=== PATIENT | female | born 1995 | race Caucasian/White ===

== ENCOUNTER 2017-11-10 09:50 | Inpatient (IN) | payer OTHER, SELFPAY ==
[2016-11-20 21:20] VITALS: BMI 28.7
[2016-11-20 21:59] VITALS: BP 124/60
[2017-11-10 04:19] VITALS: BMI 32.3
[2017-11-10] MEDS: Nalbuphine 10 MG/ML Ampul IV ×2 (06:47→10:39)
[2017-11-10] MEDS: Lactated Ringers 1,000 ML 999 ML IV (06:49)
[2017-11-10 07:13] LABS: Hematocrit 38.2 % (37-47); Hemoglobin 13.3 g/dl (12.0-15.0); Mean Corp Hgb Conc 34.8 g/gl (32-36); Mean Corpuscular Hgb 34.7 pg (27.0-32.0); Mean Corpuscular Volume 99.7 fL (81-99); Mean Platelet Vol. 10.1 fl (6.2-12.0); Platelet Count 205 K/mm3 (150-450); RBC Distribution Width CV 12.5 % (11.6-14.6); RBC Distribution Width SD 45.1 fl (35.1-43.9); Red Blood Count 3.83 M/mm3 (4.2-5.4); White Blood Count 10.7 K/mm3 (4.4-11.0)
[2017-11-10 07:15] LABS: Scan Indicated on CBC? Y/N NO
[2017-11-10] MEDS: 0.9% Saline Lock 10 ML Syringe IV (10:41)
[2017-11-10] MEDS: Lactated Ringers 1,000 ML 50 ML IV ×4 (10:42→23:29)
[2017-11-10] MEDS: Oxytocin 30 units/NS 500 ml 30 UNITS/500 ML IV.SOLN IV (13:30)
[2017-11-10] MEDS: Ondansetron 4 MG/2 ML Vial IV (17:05)
--- NOTE | 2017-11-10 18:46 | PCM.PN.BLA ---
Progress Note LABOR PROGRESS NOTE Comfortable with epidural. Reports itching on neck and chest. AVSS GEN -NAD, AAO x 3 FHR 135, moderate variability, + accelerations, no decelerations TOCO 4/10 min, MVU > 200 SVE per RN 8/100/0 approx 1 hour ago A/P 22yo @ 40 4/7wga in active labor, pitocin augmentation, Cat I FHR -Continue pitocin as tolerated by mother and fetus -Repeat SVE in 1-2 hours -Maternal and statuses reassuring
--- NOTE | 2017-11-10 23:19 | PCM.PN.BLA ---
Progress Note LABOR PROGRESS NOTE C/o painful contractions AVSS GEN - NAD, AAO x 3 FHR 150, minimal variability, + accelerations, no decelerations TOCO 4/10 min SVE FD/+1 per RN exam A/P: 22yo @ 40 3/7wga in labor, Cat II FHR -Maternal and statuses overall reassuring -Epidural rebolused -Will start puching
[2017-11-11] VITALS (23 sets, daily range): BP systolic 107–135; BP diastolic 56–86; PULSE 88–114; RESP 16–18; TEMP 36.1–37.5; O2SAT 92–100
[2017-11-11] MEDS: Lactated Ringers 1,000 ML 50 ML IV (01:40)
--- NOTE | 2017-11-11 03:41 | PCM.PN.BLA ---
Progress Note LABOR PROGRESS NOTE Relates fatigue from pushing. AVSS GEN - NAD, AAO x 3 FHR 140, moderate variability, +accelerations, no decelerations TOCO 2/10 min SVE FD/+1 station with caput A/P: 22yo @ 40 4/7wga in labor, meconium with arrest of descent -I Pushed with patient x 30 min with no change in station and worsening caput during this time - she had already pushed for approximately 3 hours, plus labored down for 3 hours (partly while awaiting epidural redosing to work) -Reviewed with patient and spouse - arrest of descent and recommend delivery. Procedural risks including pain, bleeding, infection, hemorrhage possibly requiring hysterectomy, bowel or bladder injury, VTE, scarring to potentially impact future surgery, laceration, transient tachypnea of the . Discussed perioperative antibiotics and vaginal prep. -Patient and spouse given opportunity to ask questions and questions answered to their satisfaction.
[2017-11-11] MEDS: Sodium Citrate/Citric Acid 30 ML UDC PO (03:50)
[2017-11-11] MEDS: Cefazolin 2 GM in 0.9% Normal Saline 100 ML IV (03:50)
[2017-11-11] MEDS: Oxytocin 30 units/NS 500 ml 30 UNITS/500 ML IV.SOLN 167 UNITS IV (04:21)
[2017-11-11] MEDS: Lactated Ringers 1,000 ML 100 ML IV ×2 (05:30→11:51)
--- NOTE | 2017-11-11 05:36 | PCM.OB.CSR ---
- Problem List (1) 40 weeks gestation of Status: Acute (2) Arrest of descent, delivered, current hospitalization Status: Acute (3) Delivery of by section Status: Acute Delivery Classification: DESTINEY Final ESTER: 11/07/17 Final ESTER Source: [place] <20 weeks Gestational age: 40 Weeks and 4 Days doctor who attended delivery (if requested by OB): Valerie Gutiérrez Indications: Ms. Nowak is a 22-year-old 3 para 0020 at 40-4/7 weeks gestational age admitted for labor. She had progressed to fully dilated and pushed for approximately 3 hours with no descent beyond 1+ station. She is counseled advised to proceed with section. risks were reviewed at length. Also discussed benefits and indications of section. Patient was given opportunity to ask questions and questions were answered to her satisfaction. Indications for : Arrrest of Descent Description of Procedure: The patient was taken to the operating room and spinal analgesia was administered. She is placed in a dorsal supine position with left lateral tilt. The perineum and abdomen were prepped and draped in sterile fashion. And the spinal was found to be adequate. A Pfannenstiel incision was made using a scalpel and brought down to incise the subcutaneous tissue and rectus fascia at the midline. Subcutaneous tissue was bluntly dissected off the fascia laterally. The fascial incision was dissected laterally and cephalad using curved Sebastian scissors. The superior leaflet of the rectus fascia was grasped using Ari clamps and bluntly dissected and sharply dissected from the underlying rectus muscle. In a similar fashion the inferior rectus fascia was dissected from the underlying muscle. The rectus muscles were bluntly at the midline. The peritoneum was identified and entered [sharply]. The bladder blade was placed into the abdomen and the vesicouterine peritoneal fold identified. The fold was incised and a bladder flap created. Bladder blade was then repositioned to the abdomen. A low transverse hysterotomy was made using the [Metzenbaum scissors] to level of the membranes. The hysterotomy was extended bluntly cephalad and caudad. The membranes were then ruptured revealing clear fluid. The head was impacted in the pelvis. This was required with head elevation transvaginally. The head was elevated into the uterus, where there was maternal tissue dystocia. The left rectus muscle was partially transected using the bandage scissor. The head was subsequently delivered via the hysterotomy. A male was delivered with decreased tone. The cord was doubly cut clamped and cut immediately and the infant passed to the waiting force adjustment supervisor. The placenta was manually extracted from the uterus following cord avulsion on expression. The uterus was cleared of debris. The hysterotomy was then repaired using 0 Vicryl running lock suture intracorporeally. During hysterotomy repair the patient complained of significant pain and due to inadequate pain relief she is ultimately induced under general anesthesia and intubated. A second imbricating layer was also placed for additional hemostasis. Additional bleeding from the left uterus was controlled using Molly and figure of 8 suture. There was good hemostasis. The bladder blade was removed. The anterior cul-de-sac was cleared of debris. The peritoneum was reapproximated using 2-0 Vicryl running suture. The transected rectus abdominis on the left was reapproximated using 0 Vicryl. The rectus fascia was closed using 0 Vicryl running suture. The subcutaneous tissue was sponge irrigated and small capillary bleeding controlled using the Bovie device. The subcutaneous tissue was reapproximated using 2-0 Vicryl. The skin was closed using 4-0 Monocryl subcuticularly the AIRCRAFT PAINTER under my supervision.. A Mepilex occlusive dressing was placed over the incision. The fundus was firm. The patient was then taken, extubated, and transferred to the recovery room without complication. Sponge, instrument, and needle counts were correct ?2. Male infant with weight 3267h Amniotic Membrane Rupture Type: Spontaneous Amniotic Fluid Description: Thick meconium Placenta Disposition: [facility] Drain: Cortes to straight drain Fluids Replaced: 1200 Cord Entanglement: None Nuchal Cord Compression: Without compression Cord Vessel Description: 3 Vessels Esitmated Blood Loss (ml): 1000 Gender: Male (1 minute): 1 (5 minute): 6 - 9 at 10 minutes of life Delayed cord clamping: No Pre-op Antibiotic Given: Ancef 2 grams IV x1 Pt instructed on risks of surgery: Bleeding, Infection, Injury to surrounding structure(s) including bowel and bladder - Admit VTE Documentation VTE Present on Admission: No VTE Mechan Device Prophylaxis: SCD's VTE Pharm Prophylaxis ordered?: No
--- NOTE | 2017-11-11 05:47 | PCM.IMED.CSR ---
- Problem List (1) 40 weeks gestation of Status: Acute (2) Arrest of descent, delivered, current hospitalization Status: Acute (3) Delivery of by section Status: Acute C-[id number]-[id number] PostOp Date of Procedure: 11/11/17 Primary Surgeon/Physician: Mariela Arreola, spinning lathe operator hydraulic: Yasmine Vo spinning lathe operator hydraulic: Fanny Fields Pre-op Diagnosis: Arrrest of Descent Post-Op Diagnosis: Arrrest of Descent Surgery/Procedure Performed: Primary low transverse Section Description of Surgical Findings:: The patient was taken to the operating room and spinal analgesia was administered. She is placed in a dorsal supine position with left lateral tilt. The perineum and abdomen were prepped and draped in sterile fashion. And the spinal was found to be adequate. A Pfannenstiel incision was made using a scalpel and brought down to incise the subcutaneous tissue and rectus fascia at the midline. Subcutaneous tissue was bluntly dissected off the fascia laterally. The fascial incision was dissected laterally and cephalad using curved Sebastian scissors. The superior leaflet of the rectus fascia was grasped using Ari clamps and bluntly dissected and sharply dissected from the underlying rectus muscle. In a similar fashion the inferior rectus fascia was dissected from the underlying muscle. The rectus muscles were bluntly at the midline. The peritoneum was identified and entered [sharply]. The bladder blade was placed into the abdomen and the vesicouterine peritoneal fold identified. The fold was incised and a bladder flap created. Bladder blade was then repositioned to the abdomen. A low transverse hysterotomy was made using the [Metzenbaum scissors] to level of the membranes. The hysterotomy was extended bluntly cephalad and caudad. The membranes were then ruptured revealing clear fluid. The head was impacted in the pelvis. This was required with head elevation transvaginally. The head was elevated into the uterus, where there was maternal tissue dystocia. The left rectus muscle was partially transected using the bandage scissor. The head was subsequently delivered via the hysterotomy. A male infant was delivered with decreased tone. The cord was doubly cut clamped and cut immediately and the infant passed to the waiting independent beauty consultant. The placenta was manually extracted from the uterus following cord avulsion on expression. The uterus was cleared of debris. The hysterotomy was then repaired using 0 Vicryl running lock suture intracorporeally. During hysterotomy repair the patient complained of significant pain and due to inadequate pain relief she is ultimately induced under general anesthesia and intubated. A second imbricating layer was also placed for additional hemostasis. Additional bleeding from the left uterus was controlled using Molly and figure of 8 suture. There was good hemostasis. The bladder blade was removed. The anterior cul-de-sac was cleared of debris. The peritoneum was reapproximated using 2-0 Vicryl running suture. The transected rectus abdominis on the left was reapproximated using 0 Vicryl. The rectus fascia was closed using 0 Vicryl running suture. The subcutaneous tissue was sponge irrigated and small capillary bleeding controlled using the Bovie device. The subcutaneous tissue was reapproximated using 2-0 Vicryl. The skin was closed using 4-0 Monocryl subcuticularly the AIR SAW OPERATOR under my supervision.. A Mepilex occlusive dressing was placed over the incision. The fundus was firm. The patient was then taken, extubated, and transferred to the recovery room without complication. Sponge, instrument, and needle counts were correct ?2. Male with weight 3267h Estimated Blood Loss: 1000 Specimens Removed: placenta to WP Drain: Cortes to straight drain Type of Anesthesia: - - Epidural converted to general - Admit VTE Documentation VTE Present on Admission: No VTE Mechan Device Prophylaxis: SCD's VTE Pharm Prophylaxis ordered?: No
[2017-11-11] MEDS: HYDROmorphone 1 MG/ML Syringe IV ×2 (05:58→17:28)
--- NOTE | 2017-11-11 07:02 | NURSING ---
Oxygen at 2L/min initiated via nasal cannula.
--- NOTE | 2017-11-11 08:50 | DCINST_ITS ---
Discharge Diet: No Restrictions Discharge Activity: Return to Normal Activity, May Not Drive, May not drive while taking narcotic pain medications., May Shower Return to work on:: 01/09/18 May shower in (days): 0 May resume sexual activity in: 4-6 weeks Call your doctor if your incision/area has: Sudden Increased Bleeding, Increased Pain/ Swelling, Increased Redness, Foul Smelling Discharge, Swelling at the incision site Call your doctor if you observe: Fever of 101 or Higher, Inability to urinate, Inability to have a bowel movement, Using more than one pad per hour, Shortness of breath, Chest pain, Calf discomfort, Uncontrolled pain Remove Dressing in (days):: 2 Cleanse incision/area with: Soap & Water Additional Instructions: If you experience any of the following, contact your healthcare provider. * Bleeding that soaks a pad every hour for 2 hours * Fever 100.4 or higher * Unrelieved incision or abdominal pain * Swelling, redness, discharge or bleeding from your incision or episiotomy site * Your incision begins to separate * Problems urinating (including inability to urinate or burning while urinating) . * Visual changes * Severe headache * Flu-like symptoms * Pain or redness in one of both of your breasts * Pain, warmth, tenderness or swelling in your legs, especially the calf area * Frequent nausea and vomiting * Symptoms of depression or anxiety If you experience any of the following, call 911 or go to the nearest Emergency Room. * Chest pain * Problems breathing * Seizure activity * Partial or complete paralysis of a body part, slurred speech, weakness or drooping of the face, or a sudden inability to walk or hold your balance Allergies/Adverse Reactions: Allergies naproxen sodium [From Aleve] Allergy (Verified 11/10/17 04:20) Rash Medications to take at Discharge Multivitamins,Therapeutic [Multivitamin] 1 tablet PO DAILY 04/11/14 Citalopram [Celexa] 1 tab PO DAILY 11/10/17 Ferrous Gluconate 1 tab PO DAILY 11/10/17 Ibuprofen 800 mg PO TID PRN #30 tab 11/11/17 Oxycodone [Oxyir] 1 - 2 mg PO Q4H PRN PRN 3 Days #30 tab 11/11/17 Senna/Docusate Sodium [Senokot-S] 1 - 2 tab PO DAILY PRN #60 tab 11/11/17 The following prescriptions were given: Oxycodone [Oxyir] 1 - 2 mg PO Q4H PRN PRN 3 Days #30 tab PRN Reason: Mod-Severe Pain (-07/12) Senna/Docusate Sodium [Senokot-S] 1 - 2 tab PO DAILY PRN #60 tab PRN Reason: Constipation Ibuprofen 800 mg PO TID PRN #30 tab PRN Reason: Pain Orders to be completed after discharge: Electric breast pump Location: None Selected Follow-Up: Call to make an appointment with your doctor for an incision check in 1-2 weeks. You will also need a 6 week post- follow up appointment. Please Follow Up With: Ajay Maza MD When: one week Primary Care Physician: Care Physician,No Primary [Primary Care Provider] - Proposed Discharge Date: 11/13/17
[2017-11-11] MEDS: Ibuprofen 600 MG Tablet PO ×2 (08:52→15:18)
--- NOTE | 2017-11-11 09:38 | NURSING ---
Epidural catheter removed with blue tip intact by anesthesia, Jaime SWAN, prior to leaving OR at 525.
[2017-11-11] MEDS: Senna/Docusate Sodium 1 Tablet PO (11:51)
[2017-11-11] MEDS: Citalopram 10 MG Tablet PO (11:51)
--- NOTE | 2017-11-11 13:00 | NURSING ---
Notified Crystal in [employer] social worker of patient's history of depression and of her need for a consultation.
[2017-11-12] VITALS (7 sets, daily range): BP systolic 103–112; BP diastolic 52–79; PULSE 84–120; RESP 16–18; TEMP 36–37.7; O2SAT 95–98
[2017-11-12] MEDS: Ibuprofen 600 MG Tablet PO ×2 (00:47→15:38)
[2017-11-12 05:18] LABS: Hematocrit 27.6 % (37-47); Hemoglobin 9.5 g/dl (12.0-15.0); Mean Corp Hgb Conc 34.4 g/gl (32-36); Mean Corpuscular Hgb 35.3 pg (27.0-32.0); Mean Corpuscular Volume 102.6 fL (81-99); Mean Platelet Vol. 9.6 fl (6.2-12.0); Platelet Count 130 K/mm3 (150-450); RBC Distribution Width CV 12.2 % (11.6-14.6); RBC Distribution Width SD 43.3 fl (35.1-43.9); Red Blood Count 2.69 M/mm3 (4.2-5.4); White Blood Count 12.7 K/mm3 (4.4-11.0)
[2017-11-12 05:27] LABS: Scan Indicated on CBC? Y/N NO
[2017-11-12] MEDS: 0.9% Saline Lock 10 ML Syringe IV (07:04)
[2017-11-12] MEDS: oxyCODONE 5 MG Tablet PO ×3 (10:07→18:35)
[2017-11-12] MEDS: Citalopram 10 MG Tablet PO (10:34)
--- NOTE | 2017-11-12 11:01 | CASEMGMT ---
Social Work Note Face to face with MOB and FOB. Per MOB she has been with FOB, Driss, for 4 years. They are in live together and within 15-20 minutes of relatives. Both report to have adequate supports among family. Driss and CHAVA are both employed FT. CHAVA will be able to take leave from work. They are insured and deny financial concerns. CHAVA lists her cousin and her mother as her primary supports. Both report to have all necessary supplies for infant. Have access to transportation and will establish care at [facility]. Appointment to be made yet, but confirm that they have the phone number. Substance Use Hx: Pt reports a hx of using tobacco in 2013. Denies having used since. No positive tox screen upon admission, and no specimen obtained for . Mental Health Hx and Current pattern of use: Diagnoses: Anxiety and Depression Stressors: Reports overwhelmed this week as she was overdue and was just ready to have our baby. SI or HI? Denies Treatment? Yes When? About a year ago Where[facility] (in [facility] [place] Medications? Celexa Prescribed by: Dr. Maza Pt reports a hx of depression and anxiety. Has been in counseling in the past, but not currently. Feels she does not need a counseling appointment at this time, but knows how to contact her counselor if needed. Dr. Maza prescribes her Celexa and she reports that her mental health is well managed. Coping skills consist of talking to Driss when something is bugging her, doing yoga, or surrounding herself with family. Educate MOB to PP Depression and review s/s with MOB and FOB. Both express understanding. Packet provided to review at home. Resources: Deny use of community resources. Intervention: Assessment completed d/t consult regarding dx of depression. Pt's depression is managed and appropriate supports in place. No additional needs identified and anticipate discharge tomorrow. Plan: Home Shirley Martinez, GLAZE SPRAYER, MACHINE STUFFER AUTOMATIC
--- NOTE | 2017-11-12 12:09 | PCM.PN.OB ---
Patient Problems: Active and Suspected Problems 40 weeks gestation of (Acute) Arrest of descent, delivered, current hospitalization (Acute) Delivery of by section (Acute) Subjective: Patient without complaints except for some nausea this morning. Last dose of Motrin was at 1 AM this morning and she has not been tried on Tylenol. First dose of oxycodone was this morning. Denies flatus or BM. Otherwise doing well ambulating in the room. - Physical Exam Vital Signs AF, VSS Temp Pulse Resp BP Pulse Ox 97.6 F L 89 16 105/79 98 11/12/17 08:00 11/12/17 08:00 11/12/17 08:00 11/12/17 08:00 11/12/17 08:00 Oxygen Flow Rate 2 Oxygen Delivery Method Room Air Weight: 188 lb 11.451 oz Body Mass Index (BMI) 32.3 Intake and Output for Last 24 Hours 11/10/17 11/11/17 11/12/17 23:59 23:59 23:59 Intake Total 4161 / 4161 6953 / 6953 350 / 350 Output Total 1650 / 1650 3850 / 3850 1999 / 1999 Balance 2511 / 2511 3103 / 3103 -1650 / -1650 Laboratory Tests Past 24 Hrs 11/12/17 04:45 WBC 12.7 H RBC 2.69 L Hgb 9.5 L Hct 27.6 L MCV 102.6 H MCH 35.3 H MCHC 34.4 RDW 12.2 RDW Differential 43.3 Plt Count 130 L MPV 9.6 Wound is clean, dry, intact. Good urine output. Hemoglobin okay. Assessment/Plan Active and Suspected Problems 40 weeks gestation of (Acute) Arrest of descent, delivered, current hospitalization (Acute) Delivery of by section (Acute) Doing well postoperative day #1. Continuing present care. We attempt to minimize use of narcotic pain medication if possible as this is the likely cause of the patient's GI symptoms.
[2017-11-13] MEDS: oxyCODONE 5 MG Tablet PO ×3 (00:25→19:50)
[2017-11-13] MEDS: Senna/Docusate Sodium 1 Tablet PO (00:25)
[2017-11-13 01:50] VITALS: BP 110/65; PULSE 113; RESP 17; TEMP 37.2; O2SAT 97
[2017-11-13] MEDS: Ibuprofen 600 MG Tablet PO ×3 (02:31→17:53)
[2017-11-13 09:38] VITALS: BP 101/63; PULSE 94; RESP 16; TEMP 36.7; O2SAT 98
[2017-11-13] MEDS: Citalopram 10 MG Tablet PO (09:50)
--- NOTE | 2017-11-13 11:14 | PCM.PN.OB ---
Patient Problems: Active and Suspected Problems 40 weeks gestation of (Acute) Arrest of descent, delivered, current hospitalization (Acute) Delivery of by section (Acute) Subjective: Patient without complaints. Tolerating diet well. Positive flatus. Ready to go home but baby needs to stay another day. - Physical Exam Vital Signs AF, VSS Temp Pulse Resp BP Pulse Ox 98.1 F 94 16 101/63 98 11/13/17 09:38 11/13/17 09:38 11/13/17 09:38 11/13/17 09:38 11/13/17 09:38 Oxygen Flow Rate 2 Oxygen Delivery Method Room Air Weight: 188 lb 11.451 oz Body Mass Index (BMI) 32.3 Intake and Output for Last 24 Hours 11/11/17 11/12/17 11/13/17 23:59 23:59 23:59 Intake Total 6953 / 6953 350 / 350 Output Total 3850 / 3850 1999 / 1999 Balance 3103 / 3103 -1650 / -1650 Wound is clean, dry. Good urine output. Assessment/Plan Active and Suspected Problems 40 weeks gestation of (Acute) Arrest of descent, delivered, current hospitalization (Acute) Delivery of by section (Acute) Doing well. Continue present care.
[2017-11-13 14:00] VITALS: BP 100/70; PULSE 92; RESP 16; TEMP 36.7
[2017-11-13 19:50] VITALS: BP 104/70; PULSE 104; RESP 17; TEMP 36.4; O2SAT 96
[2017-11-14] MEDS: Ibuprofen 600 MG Tablet PO ×2 (00:53→07:40)
[2017-11-14 02:00] VITALS: BP 109/73; PULSE 105; RESP 18; TEMP 36.8; O2SAT 96
[2017-11-14] MEDS: oxyCODONE 5 MG Tablet PO ×3 (02:14→11:15)
[2017-11-14 07:54] VITALS: BP 93/55; PULSE 93; RESP 16; TEMP 36.4; O2SAT 99
--- NOTE | 2017-11-14 09:18 | PCM.PN.OB ---
Patient Problems: Active and Suspected Problems 40 weeks gestation of (Acute) Arrest of descent, delivered, current hospitalization (Acute) Delivery of by section (Acute) Subjective: Pain reasonably controlled. Voiding. Breast feeding. Objective: Afeb VSS - Physical Exam General: Alert, Oriented x3, Cooperative, No apparent distress Lungs: Clear to auscultation, Normal air movement Cardiovascular: Regular rate, Regular Rhythm Abdomen: Soft, Non Tender, Non-Distended, - - Incision healing well no signs of infection Extremities: No edema, No Calf Tenderness Skin: No rashes Neurological: Neuro grossly intact Psych/Mental Status: Normal Affect Comment: Lochia light Vital Signs Temp Pulse Resp BP Pulse Ox 97.5 F L 93 16 93/55 L 99 11/14/17 07:54 11/14/17 07:54 11/14/17 07:54 11/14/17 07:54 11/14/17 07:54 Oxygen Flow Rate 2 Oxygen Delivery Method Room Air Weight: 188 lb 11.451 oz Body Mass Index (BMI) 32.3 Intake and Output for Last 24 Hours 11/12/17 11/13/17 11/14/17 23:59 23:59 23:59 Intake Total 350 / 350 Output Total 1999 Balance -1650 / -1650 Assessment/Plan Active and Suspected Problems 40 weeks gestation of (Acute) Arrest of descent, delivered, current hospitalization (Acute) Delivery of by section (Acute) Doing well on POD#3. Cleared for discharge home today. Home going instructions and warnings given.
--- NOTE | 2017-11-14 09:20 | PCM.DC.SUM ---
Discharge Date and Diagnosis - Problem List Patient Problems: Active and Suspected Problems 40 weeks gestation of (Acute) Arrest of descent, delivered, current hospitalization (Acute) Delivery of by section (Acute) Date of Admission: 11/10/17 Date of Discharge: 11/14/17 - Primary Discharge Diagnosis Active and Suspected Problems 40 weeks gestation of (Acute) Arrest of descent, delivered, current hospitalization (Acute) Delivery of by section (Acute) Hospital Course and Treatment Operations: - - Primary LTCS Summary of Care Provided: The patient is a 22 year old F [admitted in early active labor. Progressed to FD pushed for 3 hours but could not bring down head. Primary C/S was performed without complication. Post operative course unremarkable.] Discharge Diet: No Restrictions Discharge Activity: Return to Normal Activity, May Not Drive, May not drive while taking narcotic pain medications., May Shower Return to work on:: 01/09/18 May shower in (days): 0 May resume sexual activity in: 4-6 weeks Call your doctor if your incision/area has: Sudden Increased Bleeding, Increased Pain/ Swelling, Increased Redness, Foul Smelling Discharge, Swelling at the incision site Call your doctor if you observe: Fever of 101 or Higher, Inability to urinate, Inability to have a bowel movement, Using more than one pad per hour, Shortness of breath, Chest pain, Calf discomfort, Uncontrolled pain Remove Dressing in (days):: 2 Cleanse incision/area with: Soap & Water Home Medications: Medications to take at Discharge Multivitamins,Therapeutic [Multivitamin] 1 tablet PO DAILY 04/11/14 Citalopram [Celexa] 1 tab PO DAILY 11/10/17 Ferrous Gluconate 1 tab PO DAILY 11/10/17 Ibuprofen 800 mg PO TID PRN #30 tab 11/11/17 Oxycodone [Oxyir] 1 - 2 mg PO Q4H PRN PRN 3 Days #30 tab 11/11/17 Senna/Docusate Sodium [Senokot-S] 1 - 2 tab PO DAILY PRN #60 tab 11/11/17 Following Prescrptions Were Given to Patient: Oxycodone [Oxyir] 1 - 2 mg PO Q4H PRN PRN 3 Days #30 tab PRN Reason: Mod-Severe Pain (-10/10) Senna/Docusate Sodium [Senokot-S] 1 - 2 tab PO DAILY PRN #60 tab PRN Reason: Constipation Ibuprofen 800 mg PO TID PRN #30 tab PRN Reason: Pain Other Amb Orders: Electric breast pump Location: None Selected Primary Care Physician: Care Physician,No Primary [Primary Care Provider] - Please Follow Up With: Ajay Maza MD When: one week Disposition: Home Minutes spent on discharge:: 15 Patient Condition:: Good Meaningful Use Info Meaningful Use Diagnoses (Choose all that apply): None applicable
== END 2017-11-14 12:00 | disposition home or self-care (01) | DRG 765 ==
LOC: WPOUT 10:11
PROVIDERS: Obstetrics & Gynecology; Admitting Provider Obstetrics & Gynecology; Visit Provider Obstetrics & Gynecology
DX: O62.1 Secondary uterine inertia (principal); O77.0 Labor and delivery complicated by meconium in amniotic fluid; O26.23 Pregnancy care for patient with recurrent pregnancy loss, third trimester; Z37.0 Single live birth; Z3A.40 40 weeks gestation of pregnancy; Z87.891 Personal history of nicotine dependence
CPT/HCPCS: 36415; 59025; 59050; 85027; 85461; 86850; 86900; 90384; 99218; J7120; A4216; G0378; J2405; J2790

== ENCOUNTER → 2019-04-04 13:22 | Outpatient (CLI) | payer OTHER, SELFPAY ==
[2019-04-11 12:53] LABS: HPV APTIMA, High Risk Negative (Negative); HPV Reflexed? YES, CHARGE PATIENT
== END ==
PROVIDERS: Visit Provider Obstetrics & Gynecology
DX: Z12.4 Encounter for screening for malignant neoplasm of cervix (principal)
CPT/HCPCS: 87624; 88175; G0145

== ENCOUNTER → 2020-02-07 18:02 | Outpatient (CLI) | payer OTHER, SELFPAY ==
[2020-02-07 19:58] LABS: Chlamydia Trachomatis by PCR Negative (Negative); Neisserai gonorrhoeae by PCR Negative (Negative); Probe Check PASS; Sample Adequacy Control PASS; Specimen Processing Control PASS
== END ==
PROVIDERS: Visit Provider Obstetrics & Gynecology
DX: Z11.3 Encounter for screening for infections with a predominantly sexual mode of transmission (principal)
CPT/HCPCS: 87491; 87591

== ENCOUNTER → 2020-02-11 14:35 | Outpatient (CLI) | payer OTHER, SELFPAY ==
[2020-02-11 16:07] LABS: Absolute Lymphocyte Count 2.75 X10^3/uL (0.83-4.51); Absolute Neutrophil Count 6.9 X10^3/uL (2.0-7.7); Basophil# 0.02 X10^3/uL; Basophil% 0.2 % (0-1); Eosinophil# 0.03 X10^3/uL; Eosinophils% 0.3 % (0-5); Hematocrit 40.6 % (37-47); Hemoglobin 14.3 g/dL (12.0-15.0); Lymphocyte # 2.75 X10^3/ul (4.0); Mean Corp Hgb Conc 35.2 g/dL (32-36); Mean Corpuscular Hgb 33.5 pg (27.0-32.0); Mean Corpuscular Volume 95.1 fL (81-99); Mean Platelet Vol. 10.2 fl (6.2-12.0); Monocyte# 0.84 X10^3/uL; Monocyte% 7.9 % (0-10); NRBC Flagged by Analyzer 0 % (0-5); Neutrophil % 65.3 % (47-70); Platelet Count 230 K/mm3 (150-450); RBC Distribution Width CV 11.6 % (11.6-14.6); RBC Distribution Width SD 39.6 fl (35.1-43.9); Red Blood Count 4.27 M/mm3 (4.2-5.4); White Blood Count 10.6 K/mm3 (4.4-11.0)
[2020-02-11 16:09] LABS: Color, Urine Yellow (Yellow); Glucose, Dipstick Normal (Normal); Ketone-Dipstick Negative (Negative); Leukocyte Esterase-Dipstick 25 /ul (Negative); Nitrite-Dipstick Negative (Negative); Occult Blood-Urine Negative /ul (Negative); Protein-Dipstick Negative (Negative); Urine Bilirubin Dipstick Negative (Negative); Urine Clarity Cloudy (Clear); Urine Urobilinogen Normal (Normal); Urine pH 6.5 (5.0 - 8.0)
[2020-02-11 16:28] LABS: Thyroid Stim Hormone (TSH) 0.67 uIU/mL (0.358-3.74)
[2020-02-12 10:17] LABS: HIV - WCH Non-Reactive (Nonreactive); Hepatitis B Surface Antigen Non-Reactive (Nonreactive); Hepatitis C Antibody Non-Reactive (Nonreactive); Rubella IgG 26.4 IU/mL
[2020-02-14 02:31] LABS: Prenatal RPR NONREACTIVE (NONREACTIVE)
== END ==
PROVIDERS: Referring Provider Obstetrics & Gynecology; Visit Provider Obstetrics & Gynecology
DX: Z34.81 Encounter for supervision of other normal pregnancy, first trimester (principal)
CPT/HCPCS: 36415; 81002; 84443; 85025; 86703; 86762; 86803; 87340

== ENCOUNTER 2020-07-10 08:27 | Inpatient (IN) | payer OTHER, MEDICAID, SELFPAY ==
[2020-07-10] VITALS (18 sets, daily range): BP systolic 94–127; BP diastolic 46–78; PULSE 69–98; RESP 14–20; TEMP 35.9–37.1; O2SAT 99–100; BMI 28.7
[2020-07-10 07:41] LABS: ROM Internal Control Test YES-OK TO RESULT pt. (Internal QC)
[2020-07-10 07:42] LABS: ROM Patient Test POSITIVE (Negative)
[2020-07-10] MEDS: Betamethasone/Betamethasone 30 MG/5 ML Vial 12 MG IM (07:55)
[2020-07-10] MEDS: Lactated Ringers 1,000 ML 999 ML IV (08:00)
[2020-07-10] MEDS: Magnesium Sulfate 4gm/100mL 4 GM/100 ML IV.SOLN. IV (08:05)
[2020-07-10 08:22] LABS: Hematocrit 35.9 % (37-47); Hemoglobin 12.5 g/dL (12.0-15.0); Mean Corp Hgb Conc 34.8 g/dL (32-36); Mean Corpuscular Hgb 33.8 pg (27.0-32.0); Mean Platelet Vol. 9.3 fl (6.2-12.0); Platelet Count 247 K/mm3 (150-450); RBC Distribution Width CV 11.7 % (11.6-14.6); RBC Distribution Width SD 41.1 fl (35.1-43.9); White Blood Count 14.4 K/mm3 (4.4-11.0)
[2020-07-10 09:22] LABS: Group B Strep DNA By PCR Negative (Negative); Internal Control PASS; Probe Check PASS; Specimen Processing Control PASS
--- NOTE | 2020-07-10 09:27 | OP.PCM_ITS ---
Report of Operation Date of Procedure: 07/10/20 Pre-Operative Diagnosis: Bladder laceration Post-Operative Diagnosis: The same Surgery/Procedure Performed:: Open repair of bladder cystotomy Description of Surgical Findings:: 25-year-old female was in the operating room with middle school counselor she underwent an emergency and during the emergency a bladder injury was recognized. I was called in immediately came in and could see that the top of the bladder had a laceration about 5 cm in length on the top of the bladder also thinned out mucosa. The baby had already been delivered the uterus has been closed I inspected the abdomen main thing was a finding of lower midline incision split rectus muscles and that the bladder had a laceration to the top of the bladder. I closed these laceration with a running 3 o Vicryl stitch and then this did a second layer with a 2-0 Vicryl stitch over this to imbricate we then filled the bladder to check for leakage and there was another small rent that was then recognized. This was then closed with another running 3-0 Vicryl stitch over this layer and a second layer with 2-0 Vicryl to bring the fat and muscle layer over this we then filled the bladder again and there was no leakage from the bladder the ureter repair 100% closed the bladder was filled without 170 cc of sterile saline. Once the bladder repair was completed we checked with filling there was no leakage we left the [address] in place the case was then handed back over the middle school counselor to finish the closure of the incision. I will see the patient postoperatively will plan to have her go home with a catheter and do a cystogram about 2 weeks later. Type of Anesthesia:: General Drains: 16 fr miguel - Admit VTE Documentation VTE Present on Admission: No VTE Mechan Device Prophylaxis: SCD's
--- NOTE | 2020-07-10 09:58 | PCM.HP.BLA ---
History and Physical Date of Admission: 07/10/20 ACOG ANTEPARTUM RECORD - HISTORY AND PHYSICAL (07/10/2020) Name: ANNA RICHARDSELIE History of This : This is a 25-year-old 4 para 1 AB 2 who presents at 29 weeks and 2 days gestation with premature rupture of membranes. care has been uneventful otherwise except for a prior section. Upon presentation Celestone was given and magnesium sulfate 6 g bolus started. Group B strep cultures were obtained. Bedside ultrasound showed the baby to have minimal fluid and to be in a breech presentation. heart tones were tachycardic and some decelerations were noted upon presentation. Minimal vaginal bleeding was noted in the abdomen was noted to be tender. Initial examination showed the cervix to be 3 cm dilated 90% effaced. OB Physician: LISA [place]'s Physician: PED HEDIS SPECIALIST ...................................................................... : 1995 Age: 25 Address: [address] [place] [address] Phone: ([phone] Insurance Carrier: ILYAEdwardMARI [id number] Emergency Contact: TRUE MACEDORIGOBERTOSOMMER [phone] ...................................................................... Final ESTER: 09/23/20 By Ultrasound: 7 weeks 1 day PARITY: (G-Total Pregnancies P-Fullterm,Premature,Induced AB,Spont AB, Ectopics, Multiple,Living) ESTER CONFIRMATION: By LMP: 12/18/19 By First Ultrasound Exam: 09/23/20 Final ESTER: 09/23/20 OB PROBLEM LIST: Breast reduction- Plans to try again! Declines MSAFP and CF testing Hx of two early SAB's Positive Tox screen for THC- admits to use rarely Prior CS -- success predicted 62 percent-- plan Repeat with tubal Prior Smoker ALLERGIES: Aleve Itching of skin No Known Allergies MEDICATIONS: Celexa 10 mg tablet One pill by mouth once a day 28 mg iron-800 mcg tablet One pill by mouth once a day Probiotic with Prebiotic 1 billion cell-250 mg capsule One pill by mouth once a day promethazine 12.5 mg tablet 1 to 2 tabs po every 6 hrs prn nausea Supplement (s) [No Strength] Greens Supplement once daily Zofran 8 mg tablet One pill by mouth four times a day prn nausea SOCIAL HISTORY: Smoking - used to smoke but quit and quit in 2016 Alcohol Use - denies drinking Diet - balanced Diet Lifestyle - moderate stress lifestyle and Exercise - minimal Employer - [employer] Job Description - Childcare Illicit Drug Use - admits recent marijuana use Sexual Activity - [employer] Residence - lives with Place of - [place], [place] Hours Worked - none at present Spouse-Sig Other Name - True Richards Spouse-Sig Other Occupation - [employer] Spouse-Sig Other Phone No - [phone] Children Name(s) - Michael(18) PRIOR DELIVERY HISTORY DEL DATE GEST LAB WT LB WT OZ TYPE ANES LABOR TX 01 Dec 17 7 0 0 0 Sab None No Nov 18 40 20 7 4 C-Sec Epidural No Oct 16 6 0 0 0 Sab None No ANTEPARTUM FLOW CHART VISIT GE RTC FU F F CA U U DATE WK MD WKS HT PN HR M SS BP ED WT CA GL D EF ST __ ____ ___ __ __ ___ __ __ __ ___ __ __ __ ___ __ 21 Jun 28 JMW 3 26 + + 110/70 sl 174 tr - May 23 JMW 4 21 + + 120/68 0 164 tr - Mar 16 JMW 3 14 + - 110/64 0 158 - - February 06 JMW 4 U+ US 124/80 0 157 tr - ANTEPARTUM NOTE(S): Jun 23 2020: feeling well. Glucola given today. AM May 15 2020: US today, good movement, slight nausea Mar 26 2020: see note Feb 11 2020: Sono Today,Nausea Daily COMPREHENSIVE ANTEPARTUM NOTE(S): Mar 26 2020: Chely is here for a PNV. She is still not feeling well. Constant nausea and vomiting, vomits approx. 10 times a day. Feelings fatigued and has headaches which she believes is due to not being able to eat. No food or water will stay down very long. She is on Promethazine which she states does not help. Would like to discuss trying a different medication. Waiting on a urine sample. MARIBEL Mar 03 2020: Telehealth NOB completed with time spent on phone 60 minutes. Chely is called for NOB visit. Chely reports that she is just feeling terrible. She is nauseated and has emesis most days. She has tried Tylenol for headaches that is just not working. Had to have Rx last time that did help. She feels that the stress of the pandemic and being without pay and insurance is adding to how she is feeling. She will be losing her insurance at the end of this month. [place] [facility]. They are hoping this will occur in June. She is asks for large amount of medications d/t loss of insurance. Advised neither of these medications are very expensive. Can use Good Rx card or other type at pharmacy. She relates her first labor was pretty terrible and she had an emergency C/S that she felt. She was then given a general for repair. She is not at all interested in trying . Plans R C/S with spinal in place. She relates some stress over job. Her EPSD score is 12, takes Celexa currently. She works for the [employer] and they will continue to be closed until June. She was getting payed and her insurance covered but this is stopping by the end of March. She is not sure what they will do after this date? Pay for this with contribution from [employer] or just go without to she resumes her job? She is on Celexa and we discussed other coping mechanisms. Could try walking daily, yoga, meditation, ect. Can discuss further if sx do not improve after she starts feeling better. It is hard to care for a 1 year old and be nauseated all the time. She agrees that this is difficult for her. Discussed could try chewable vitamin, stop her green drink, that just comes up when she drinks it, try to eat and drink things that go down easily. After things improve she can resume her better vitamin and green drink. Does not do much good when it increases nausea and emesis. Agreeable then to try without those for a couple weeks and then can add back after she starts feeling better. She had breast reduction prior but tried her son without much success. States would pump about 4 ounces per day. She will attempt again to see how it goes. Can always supplement with formula and baby still gets benefit from the breastmilk. She admits to smoking Marijuana rarely but tox screen was positive. Quit smoking with last . Denies ETOH use. She is not intersted in MSAFP or tsting and consents are signed as such. labs reviewed. No anemia or communicable diseases. Chart is updated and all questions are answered. LMT Feb 07 2020: Chely presents here today for Missed Menses appointment. 24 y.o. G 4 P 1 previous smoker (quit in 2016) with regular menses with an approximate LMP of 03-17-20 lasting and average of 4 days. UPT is positive today in our Office. Presents at approximately 7 weeks 2 days with an approximate ESTER of 12-22-20 and would like to discuss possible with this . Denies spotting/bleeding thus far in . Denies other concerns as well. Currently taking an OTC Vitamin with Educational Materials given. Medication and Allergy lists up-dated. History of normal pap screenings from 2016 through 04/2019. CHELITA Feb 07 2020: ok REVIEW OF SYSTEMS: GENERAL - Denies fever, or chills SKIN - Denies rash, new skin lesions, or change in moles EYES - Denies blurred vision, or change in visual acuity EARS - Denies ear pain, or difficulty hearing NOSE - Denies nasal congestion, discharge, or bleeding MOUTH - Denies sore throat, or difficulty swallowing NECK - Denies pain or swelling RESPIRATORY - Denies shortness of breath, cough, wheezing CARDIOVASCULAR - Denies palpitations, chest pain, orthopnea, PND, peripheral edema, syncope or claudication GASTROINTESTINAL - Denies nausea, vomiting, diarrhea, constipation, Denies abdominal pain, melena and or bright red blood GENITOURINARY - Denies dysuria, frequency of urination, urgency, or hesitancy MUSCULOSKELETAL - Denies joint or muscle pain, or back pain NEUROLOGICAL - Denies localized numbness, weakness, or tingling PSYCHIATRIC - Denies depression, anxiety, substance abuse or suicide attempts ENDOCRINE - Denies heat or cold intolerance, weight loss or gain, increasing thirst HEMATO-IMMUNOLOGIC - Denies easy bruising, bleeding, oral ulcerations or recurrent infections GENETICS SCREENING: Age 35+ years: No Thalassemia: No Neural Tube Defect: No Down Syndrome: No YARY-SACHS: No Sickle Cell Disease: No Hemophilia: No Musc. Dystrophy: No Cystic Fibrosis: Yes, first cousin Shmuel Chorea: No Mental Retardation: No Fragile X: No Other genetic: No Other defects: No SABs/still births: No Drugs since LMP: No INFECTION HISTORY: High risk AIDS: No High risk Hepatitis: No Exposed to TB: No Exposed to Herpes: No Rash/viral illness since LMP: No History of STD: No MENSTRUAL HISTORY: *Menses Amount/Duration: 5 daysMenses Regularity: RegularFrequency: monthlyMenarche (Age Onset): 9* PAST SUMMARY: PARITY: 1. Total Pregnancies............ 4 2. Full Term Pregnancies........ 0 3. Premature.................... 0 4. Abortions - Induced.......... 0 5. Abortions - Spontaneous...... 2 6. Ectopics..................... 0 7. Multiple Births.............. 0 8. Living Children.............. 1 PAST #1: Date of :.................. 10/17/15 Gestation Weeks:................ 6 Length of labor(hours):......... 0 Sex:............................ Weight-lbs:............... 0 Weight-oz:................ 0 Type of Delivery:............... Sab Type of Anesthesia:............. None Place of Delivery:.............. none Treatment of Labor?:.... No Comment: DATE APPROX PAST #2: Date of :.................. 12/01/16 Gestation Weeks:................ 7 Length of labor(hours):......... 0 Sex:............................ Weight-lbs:............... 0 Weight-oz:................ 0 Type of Delivery:............... Sab Type of Anesthesia:............. None Place of Delivery:.............. none Treatment of Labor?:.... No Comment: DATE APPROX PAST #3: Date of :.................. 11/11/17 Gestation Weeks:................ 40 Length of labor(hours):......... 20 Sex:............................ M Weight-lbs:............... 7 Weight-oz:................ 4 Type of Delivery:............... C-Sect Type of Anesthesia:............. Epidural Place of Delivery:.............. [place] Treatment of Labor?:.... No Comment: DISTRESS, FTP PHYSICAL EXAMINATION General Appearence: 25 yo female in no acute distress Vital Signs: AF, VSS Heart: RRR without rubs or gallops Lungs: CTA x 2 Breasts: deferred Abdomen: gravid with some contractions being noted by the patient every 4 to 5 minutes; some tenderness noted across the abdomen Pelvis: Cervix: 3 with ROM test positive Presentation: Breech by bedside ultrasound Station: High Fetus: Size: AGA Movement: present Heart: present TYPE AND SCREEN 07/10/20 Has pt arrived? Y Reason for Type AND Screen/Red Cells: [facility]~[address] [place], [address]~ BLOOD TYPE GEL A NEGATIVE N ANTIBODY SCREEN NEGATIVE N CBC-COMPLETE BLOOD CNT NO DIFF 07/10/20 NOTE Original Ordering Provider: Jaydon Armando WBC 14.4 K/mm3 4.4-11.0 H RBC 3.70 M/mm3 4.2-5.4 L HGB 12.5 g/dL 12.0-15.0 HCT 35.9 % 37-47 L MCV 97.0 fL 81-99 MCH 33.8 pg 27.0-32.0 H MCHC 34.8 g/dL 32-36 RDW CV 11.7 % 11.6-14.6 RDW SD 41.1 fl 35.1-43.9 PLT 247 K/mm3 150-450 MPV 9.3 fl 6.2-12.0 GROUP B STREP DNA BY PCR 07/10/20 NOTE Original Ordering Provider: Jaydon Armando GBS TEST RESULT Negative Negative (ROM) RUPTURE OF MEMBRANES 07/10/20 NOTE Original Ordering Provider: Jaydon Armando ROM POSITIVE Negative H Amniotic fluid present indicates rupture of Membranes. RESULTS CALLED TO JENNIFER DUENAS WP 07/10/20 0741 Beatriz Aldrich. REPORT READ BACK BY SAME . Reviewed by JAYDON RPR 02/11/20 NOTE Original Ordering Provider: Jaydon Armando RPR NONREACTIVE NONREACTIVE Reviewed by JAYDON HEPATITIS C ANTIBODY 02/11/20 NOTE Original Ordering Provider: Jaydon Armando HEPATITIS C AB Non-Reactive Nonreactive Non Reactive: < 0.8 Equivocal: >/= 0.8 to < 1.0 Reactive: >/= 1.0 The CDC recommends that a reactive/equivocal HCV antibody result be followed up by the HCV Nucleic Acid Amplification test (211119) Reviewed by JAYDON HEPATITIS B SURFACE ANTIGEN 02/11/20 NOTE Original Ordering Provider: Jaydon Armando HEPB SURFACE AG Non-Reactive Nonreactive Reviewed by JAYDON HIV - [facility] 02/11/20 NOTE Original Ordering Provider: Jaydon Armando HIV - [facility] Non-Reactive Nonreactive Reviewed by JAYDON RUBELLA IGG 02/11/20 NOTE Original Ordering Provider: Jaydon Armando RUBELLA IGG 26.4 IU/mL Antibody results Interpretation of Immune Status < 5 IU/ml Presumed Non-immune 5 - < 10 IU/ml Equivocal > or = 10 IU/ml Presumed Immune Reviewed by JAYDON T AND S-NO CHARGE W/PNP 02/11/20 Reason for Type AND Screen/Red Cells: Surgery? N [facility]~[address] [place], [address]~ BLOOD TYPE GEL A NEGATIVE N AB SCREEN GEL NEGATIVE N Reviewed by JAYDON THYROID STIM HORMONE (TSH) 02/11/20 NOTE Original Ordering Provider: Jaydon Armando TSH 0.67 uIU/mL 0.358-3.74 Reviewed by JAYDON URINALYSIS, ROUTINE (DIPSTICK) 02/11/20 NOTE Original Ordering Provider: Jaydon Armando COLOR Yellow Yellow CLARITY Cloudy Clear GLUCOSE, UR Normal mg/dl Normal BILIRUBIN URINE Negative mg/dL Negative KETONE UR Negative mg/dl Negative SP.GR. DIPSTX 1.020 1.002-1.030 PH UR 6.5 5.0 - 8.0 PROT DIPSTX Negative mg/dl Negative UROBILI Normal mg/dl Normal NITRITE UR Negative Negative OCCULT BLOOD-UR Negative /ul Negative LEUK ESTERASE 25 /ul Negative H Reviewed by JAYDON CBC W/DIFF, AUTOMATED 02/11/20 NOTE Original Ordering Provider: Jaydon Armando WBC 10.6 K/mm3 4.4-11.0 RBC 4.27 M/mm3 4.2-5.4 HGB 14.3 g/dL 12.0-15.0 HCT 40.6 % 37-47 MCV 95.1 fL 81-99 MCH 33.5 pg 27.0-32.0 H MCHC 35.2 g/dL 32-36 RDW CV 11.6 % 11.6-14.6 RDW SD 39.6 fl 35.1-43.9 PLT 230 K/mm3 150-450 MPV 10.2 fl 6.2-12.0 NEUT% 65.3 % 47-70 LY% 26.0 % 19-41 MONO% 7.9 % 0-10 EO% 0.3 % 0-5 BASO% 0.2 % 0-1 IM GRAN % 0.300 % 0.0-0.9 IG% - Immature Granulocytes (promyelocytes, myelocytes and metamyelocytes) > 1% indicates that a LEFT SHIFT is Present. ABSOLUTE NEUT 6.9 X10 3/uL 2.0-7.7 ABSOLUTE LYMPH 2.75 X10 3/uL 0.83-4.51 NRBC, FLAGGED 0 % 0-[address]/IZABELLA [facility] BY PCR 02/07/20 NOTE Original Ordering Provider: Jaydon Armando [facility] PCR Negative Negative NG BY PCR Negative Negative Reviewed by JAYDON Impression /Plan: 29+2 weeks gestation with premature rupture of membranes, breech presentation. Magnesium sulfate, steroids, and antibiotics started. After monitoring for about 45 minutes baby remained tachycardic and now obvious audible decelerations were noted and for this reason it was decided proceed with stat section for increasing stress. I discussed with the patient the necessity of the immediate surgery as well as reluctance to proceed with a tubal ligation given the emergent nature of the procedure and she agreed. All questions were answered to the best of our ability in the short time frame that was available.
--- NOTE | 2020-07-10 10:10 | OP.PCM_ITS ---
Delivery Classification: Stat Final ESTER: 09/23/20 Final ESTER Source: US <20 weeks Gestational age: 29 Weeks and 2 Days doctor who attended delivery (if requested by OB): Angelica Jackson - 29+2 wks gestation tombstone erector helper: Fanny Fields Type of Anesthesia:: Spinal - With Duramorph Date of Procedure: 07/10/20 Pre-Operative Diagnosis: Premature Rupture of Membranes at 29 Weeks Gestation, Distress, Breech Presentation Post-Operative Diagnosis: Premature Rupture of Membranes at 29 Weeks Gestation, Distress, Breech Presentation, Abruptio Placenta Description of Procedure: Surgeon: Abimael Armando MD, FACOG Anesthesia: Adan Armando MD; Efrem Clayton MD Intraoperative Consult: Stuart Anaya MD (repair of cystotomy dictated separately) Procedure: Emergency Repeat Low Transverse Cervical Caesarean Section; Repair of Cystotomy Findings: Viable male infant with Apgars of TBD in breech presentation with clear amniotic fluid and three-vessel placenta. Placenta was extruded from the uterus before the baby. 4 to 5 cm cystotomy in dome of bladder noted immediately after opening the abdomen. Baby rotated to cephalic for delivery without difficulty. Indication: This is a 25-year-old who presents at 29+ weeks gestation with premature rupture membranes, breech presentation, and eventual distress. care has otherwise been uneventful except for a prior section. The patient has been counseled regarding the risk and indications of this procedure including the possibility of bleeding infection and injury to surrounding structures such as bowel bladder. All questions were answered. Procedure: Patient was taken to the operating room where after spinal anesthesia was placed, the patient was prepped and draped in usual sterile fashion and a Cortes catheter was placed. The abdomen was entered through the patient's prior Pfannenstiel incision and peritoneum was entered bluntly. Upon entering the abdomen the Cortes bulb was noted to be in the abdomen. A low transverse incision was made on the uterus and head was easily delivered onto the operative field after rotating the baby from breech to cephalic and the nose mouth and oropharynx were bulb suctioned. Subsequently a viable male was born with Apgars of [ ]. The infant was noted to wince and move all extremities vigorously on the operative field. The umbilical cord was doubly clamped and ligated and infant handed to the nursery personnel who were present for the delivery. Placenta which had already delivered delivered was noted to be 3 vessels. Uterus was exteriorized and remaining placental tissue was removed. The uterus was then closed in 2 layers first with running locked 0 Vicryl suture followed by a second imbricating layer with 0 Vicryl suture. 0 Vicryl suture was then used in a horizontal mattress interrupted fashion to affect final hemostasis of the uterine incision line. Normal fallopian tubes and ovaries were visualized and the uterus was returned to the pelvis. At this portion of the procedure Dr. Anaya entered the operating room suite and performed cystotomy repair which is dictated separately. Hemostasis was noted and rectus abdominis muscles were reapproximated in the midline with interrupted Number 0 Vicryl suture in a horizontal mattress fashion. Fascia was closed with running Number 1 PDS Strata fix suture. Subcutaneous tissue was irrigated with copious amounts of saline solution and then closed with running 3-0 Vicryl suture. Skin was closed with 4-0 monocryl suture in a running subcuticular fashion. Steri strips and a Mepilex dressing were placed across the incision. The patient tolerated the procedure well and was taken to the recovery room in satisfactory condition. Sponge, needle, and instrument counts were all reportedly correct. EBL was 500 cc. Ampicillin and then Cefotan 2 gms IV was given prior to the procedure. Spicemen to Pathology: Placenta Complications: Cystotomy
[2020-07-10] MEDS: Oxytocin 30 units/NS 500 ml 30 UNITS/500 ML IV.SOLN 167 UNITS IV (10:15)
--- NOTE | 2020-07-10 10:20 | DCINST_ITS ---
<Abimael Armando - Last Filed: 07/10/20 10:20> Discharge Diet: No Restrictions Discharge Activity: May not drive while taking narcotic pain medications., May Shower, May Take a Tub Bath May resume sexual activity in: 4-6 weeks Lifting Restrictions: 20 pounds Additional Activity Instructions:: Nothing in the vagina for 4-6 weeks. You may return to work/school in 6 weeks. Call your doctor if your incision/area has: Continuous Slow Oozing, Sudden Increased Bleeding, Increased Pain/ Swelling, Increased Redness, Foul Smelling Discharge Call your doctor if you observe: Fever of 101 or Higher, Inability to have a bowel movement, Using more than one pad per hour Additional Dressing/Incision Instructions:: Maintain Cortes until Dr. Anaya indicates it can be removed. Additional Instructions: If you experience any of the following, contact your healthcare provider. * Bleeding that soaks a pad every hour for 2 hours * Fever 100.4 or higher * Unrelieved incision or abdominal pain * Swelling, redness, discharge or bleeding from your incision or episiotomy site * Your incision begins to separate * Problems urinating (including inability to urinate or burning while urinating). * Visual changes * Severe headache * Flu-like symptoms * Pain or redness in one of both of your breasts * Pain, warmth, tenderness or swelling in your legs, especially the calf area * Frequent nausea and vomiting * Symptoms of depression or anxiety If you experience any of the following, call 911 or go to the nearest Emergency Room. * Chest pain * Problems breathing * Seizure activity * Partial or complete paralysis of a body part, slurred speech, weakness or drooping of the face, or a sudden inability to walk or hold your balance Allergies/Adverse Reactions: Allergies No Known Allergies Allergy (Verified 07/10/20 07:49) Medications to take at Discharge Citalopram [Celexa] 1 tab PO DAILY 11/10/17 Docusate Sodium [Colace] 100 mg PO BID PRN PRN #60 cap 07/10/20 Oxycodone [Oxyir] 5 mg PO Q6H PRN PRN 7 Days #20 tab 07/10/20 Vit No.130/Iron/Folic [ Tablet] 1 ea PO DAILY 07/10/20 The following prescriptions were given: Docusate Sodium [Colace] 100 mg PO BID PRN PRN #60 cap PRN Reason: Constipation Transmission Status: Received by [id number] Oxycodone [Oxyir] 5 mg PO Q6H PRN PRN 7 Days #20 tab PRN Reason: Pain Score 6-10/10 Transmission Status: Received by [id number] Follow-Up: Call to make an appointment with your doctor for an incision check in 1-2 weeks. You will also need a 6 week post- follow up appointment. Test results from this visit will be discussed in further detail at your follow- up appointment, if applicable. Please Follow Up With: Abimael Armando MD - [phone] When: Call to make an appointment for an incision check in 2 weeks. Primary Care Physician: Care Physician,No Primary [Primary Care Provider] - <Amanda Tejada - Last Filed: 07/12/20 10:20> Additional Instructions: If you experience any of the following, contact your healthcare provider. * Bleeding that soaks a pad every hour for 2 hours * Fever 100.4 or higher * Unrelieved incision or abdominal pain * Swelling, redness, discharge or bleeding from your incision or episiotomy site * Your incision begins to separate * Problems urinating (including inability to urinate or burning while urinating). * Visual changes * Severe headache * Flu-like symptoms * Pain or redness in one of both of your breasts * Pain, warmth, tenderness or swelling in your legs, especially the calf area * Frequent nausea and vomiting * Symptoms of depression or anxiety If you experience any of the following, call 911 or go to the nearest Emergency Room. * Chest pain * Problems breathing * Seizure activity * Partial or complete paralysis of a body part, slurred speech, weakness or drooping of the face, or a sudden inability to walk or hold your balance Follow-Up: Call to make an appointment with your doctor for an incision check in 1-2 weeks. You will also need a 6 week post- follow up appointment. Test results from this visit will be discussed in further detail at your follow- up appointment, if applicable.
--- NOTE | 2020-07-10 11:05 | CASEMGMT ---
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 Provided emotional support to Driss this date during delivery and after during care of baby post discharge. Answered questions as able. -NAYELI Napier, [employer]ERSON [employer]
[2020-07-10] MEDS: Citalopram 10 MG Tablet PO (11:35)
[2020-07-10] MEDS: Acetaminophen 500 MG Tablet 1000 MG PO ×3 (11:37→23:47)
[2020-07-10] MEDS: Senna/Docusate Sodium 1 Tablet PO (12:42)
[2020-07-10] MEDS: Lactated Ringers 1,000 ML 100 ML IV ×2 (13:29→21:19)
--- NOTE | 2020-07-10 13:42 | NURSING ---
Dr Roman called at 0845 for bladder repair via request of Dr Armando. In room 0902 . 0914 bladder backfilled with normal saline 50cc per Dr Anaya request to check bladder after clamped, and at 0920 filled with another 110cc normal saline to assess bladder for leakage, none noted 922 miguel unclamped and bladder drained of bloody fluid. 923 Dr Anaya out of c/s room
[2020-07-10] MEDS: Ketorolac 30 MG/ML Syringe IV ×2 (14:59→21:19)
--- NOTE | 2020-07-10 18:04 | NURSING ---
Iv noted to be pulled most of the way out. D/C and call placed to provider. Plan to restart SL IV.
[2020-07-10] MEDS: 0.9% Saline Lock 10 ML Syringe IV (18:18)
--- NOTE | 2020-07-10 18:56 | NURSING ---
Is CPR certified. Declines video.
[2020-07-11 03:20] VITALS: BP 95/45; PULSE 71; RESP 16; TEMP 36.2
[2020-07-11] MEDS: Ketorolac 30 MG/ML Syringe IV ×2 (03:22→09:51)
[2020-07-11] MEDS: 0.9% Saline Lock 10 ML Syringe IV ×3 (03:23→15:45)
[2020-07-11 05:14] LABS: Hematocrit 31.1 % (37-47); Hemoglobin 10.2 g/dL (12.0-15.0); Mean Corp Hgb Conc 32.8 g/dL (32-36); Mean Corpuscular Hgb 33.1 pg (27.0-32.0); Mean Platelet Vol. 9.3 fl (6.2-12.0); Platelet Count 207 K/mm3 (150-450); RBC Distribution Width CV 11.9 % (11.6-14.6); RBC Distribution Width SD 43.9 fl (35.1-43.9); Red Blood Count 3.08 M/mm3 (4.2-5.4)
[2020-07-11] MEDS: Acetaminophen 500 MG Tablet 1000 MG PO ×3 (05:52→18:19)
[2020-07-11 08:22] VITALS: BP 91/52; PULSE 74; RESP 16; TEMP 36.2
--- NOTE | 2020-07-11 08:22 | ED.RN ---
Dr. Pina at bedside
--- NOTE | 2020-07-11 08:36 | PN.OBGYN_ITS ---
Subjective: No overnight complaints. Pain well controlled. Minimal lochia. Bladder catheter still in place. Denies chest pain, shortness of breath, nausea v omiting. - Physical Exam Vitals/I&O's: Vital Signs Temp Pulse Resp BP Pulse Ox 97.2 F L 74 16 91/52 L 100 07/11/20 08:22 07/11/20 08:22 07/11/20 08:22 07/11/20 08:22 07/10/20 17:45 Oxygen Delivery Method Room Air Weight: 172 lb 6.424 oz Body Mass Index (BMI) 28.7 Intake and Output for Last 24 Hours 07/09/20 07/10/20 07/11/20 23:59 23:59 23:59 Intake Total 3621.67 / 3621.67 Output Total 1740 / 1740 800 / 800 Balance 1881.67 / 1881.67 -800 / -800 General: Alert, Oriented x3, Cooperative, No apparent distress HEENT: Atraumatic, Normocephalic Oral: Moist Mucosa Neck: Supple Abdomen: Soft, Non Tender, Gravid - Fundus firm and below umbilicus, - - Incision clean dry and intact Extremities: No clubbing, No cyanosis, No edema Psych/Mental Status: Normal Affect, Appropriate, Alert and oriented to time, place, person, mood and affect Laboratory Results 07/10/20 07:45: Group B Strep DNA Negative, Specimen Comment Not Reportable 07/10/20 08:00: Blood Type A NEGATIVE, Antibody Screen NEGATIVE 07/10/20 10:45: Screen Cancelled, Baby's Blood Type Cancelled, Baby's TANIA Cancelled 07/11/20 05:05: WBC 17.0 H, RBC 3.08 L, Hgb 10.2 L, Hct 31.1 L, MCV 101.0 H, MCH 33.1 H, MCHC 32.8 D, RDW Std Deviation 43.9, RDW Coeff of Genesis 11.9, Plt Count 207, MPV 9.3 Current Medications Acetaminophen (Tylenol) 1,000 mg PO Q6H [facility] Last Admin: 07/11/20 05:52 Dose: 1,000 mg Documented by: Bisacodyl (Dulcolax) 10 mg RECTAL UD PRN PRN Reason: If no BM Citalopram Hydrobromide (Celexa) 10 mg PO DAILY [facility] Last Admin: 07/10/20 11:35 Dose: 10 mg Documented by: Diphenhydramine HCl (Benadryl) 25 mg PO Q6H PRN PRN PRN Reason: ITCHING Stop: 07/11/20 10:16 Hydrocortisone (Hytone) 1 applic TOPICAL TID PRN PRN; Protocol PRN Reason: Discomfort Lactated Ringer's () 1,000 mls @ 100 mls/hr IV .Q10H [facility] Last Admin: 07/11/20 05:32 Dose: Not Given Documented by: Naloxone HCl 4 mg/ Dextrose 504 mls @ 0 mls/hr IV .Q0M PRN; Protocol PRN Reason: Respiratory depression Ibuprofen (Motrin) 600 mg PO Q6H [facility] Ketorolac Tromethamine (Toradol (Bkc)) 30 mg IV Q6H [facility] Stop: 07/11/20 09:31 Last Admin: 07/11/20 03:22 Dose: 30 mg Documented by: Methylergonovine Maleate (Methergine) 0.2 mg IM X1 PRN PRN Reason: Uterine Atony Naloxone HCl (Narcan) 0.02 mg IV Q1M PRN PRN Reason: RR <10 and pt unresponsive Ondansetron HCl (Zofran) 4 mg IV Q4H PRN PRN PRN Reason: Nausea Oxycodone HCl (Oxyir) 5 - 10 mg PO Q4H PRN PRN PRN Reason: Pain Score 4-10/10 Prochlorperazine Edisylate (Compazine Iv) 10 mg IV Q6H PRN PRN PRN Reason: NAUSEA Senna/Docusate Sodium (Senokot-S, Anette-Colace) 1 - 2 tablet PO DAILY [facility] Last Admin: 07/10/20 12:42 Dose: 2 tablet Documented by: Simethicone (Mylicon) 80 mg PO [facility] PRN PRN Reason: Indigestion/stomach pain Sodium Chloride () 5 - 15 ml IV UD PRN PRN Reason: SALINE FLUSH Last Admin: 07/11/20 03:23 Dose: 10 ml Documented by: Medical Necessity - Tobacco Use Smoking Status: Former smoker Assessment/Plan All Active Problems 40 weeks gestation of (Acute) Arrest of descent, delivered, current hospitalization (Acute) Delivery of by section (Acute) Postoperative day 1 status post repeat low transverse section via Pfannenstiel incision at 29 weeks for nonreassuring heart tones and suspected placental abruption complicated by cystotomy repair by urology. Pain well controlled, breast-feeding. Urology to see, continue Cortes catheter based on their suggestion. Patient in need of good follow-up with urology if okay to DC home by urology okay to DC home by [facility] [employer] as patient's baby is in [facility].
[2020-07-11] MEDS: Senna/Docusate Sodium 1 Tablet PO (09:51)
[2020-07-11] MEDS: Citalopram 10 MG Tablet PO (09:52)
--- NOTE | 2020-07-11 13:35 | PCM.PN.BLA ---
Progress Note 25-year-old female status post repair of a large bladder injury during his emergency urine is clear this morning however the nurse did call me and tell me she is having bladder spasms and difficulty with emptying recommended we flushed the catheter I do not think it would be prudent to send the patient home on post op day #1 given her complication, would monitor drainage from the catheter make sure the urine is clear flush as necessary call urology with questions.
[2020-07-11] MEDS: Ibuprofen 600 MG Tablet PO ×2 (15:44→22:17)
[2020-07-11 15:50] VITALS: BP 102/57; PULSE 79; RESP 18; TEMP 36.8
[2020-07-11] MEDS: oxyCODONE 5 MG Tablet PO (18:19)
[2020-07-11 19:45] VITALS: BP 100/66; PULSE 79; RESP 16; TEMP 36.4
--- NOTE | 2020-07-12 00:13 | NURSING ---
pt has indwelling urinary catheter due to tear in bladder acquired during c/s
[2020-07-12] MEDS: Acetaminophen 500 MG Tablet 1000 MG PO ×2 (00:26→06:40)
[2020-07-12 00:28] VITALS: BP 102/43; PULSE 80; RESP 16; TEMP 36.3
[2020-07-12] MEDS: Ibuprofen 600 MG Tablet PO ×2 (04:26→10:13)
[2020-07-12 04:30] VITALS: BP 104/57; PULSE 74; RESP 16; TEMP 36.3
[2020-07-12 08:05] VITALS: BP 102/65; PULSE 76; RESP 16; TEMP 36.6
[2020-07-12] MEDS: Nitrofurantoin Macrocrystals 100 MG Capsule PO (08:08)
[2020-07-12] MEDS: Senna/Docusate Sodium 1 Tablet PO (10:13)
[2020-07-12] MEDS: Citalopram 20 MG Tablet PO (10:13)
--- NOTE | 2020-07-12 10:16 | PCM.PN.OB ---
Subjective: Had complications yesterday with miguel catheter, but feeling much better overnight. Denies any pain, heavy bleeding, or questions. Pumping for infant at [place]. Would like to discharge home today. Objective: VSS. Fundus is firm, midline, u/2. Dressing is CDI. Miguel catheter is draining clear, yellow. - Physical Exam Vitals/I&O's: Vital Signs Temp Pulse Resp BP Pulse Ox 97.3 F L 74 16 104/57 L 100 07/12/20 04:30 07/12/20 04:30 07/12/20 04:30 07/12/20 04:30 07/10/20 17:45 Oxygen Delivery Method Room Air Weight: 78.2 kg Body Mass Index (BMI) 28.7 Intake and Output for Last 24 Hours 07/10/20 07/11/20 07/12/20 23:59 23:59 23:59 Intake Total 3621.67 / 3621.67 1000 / 1000 Output Total 1740 / 1740 2325 / 2325 450 / 450 Balance 1881.67 / 1881.67 -1325 / -1325 -450 / -450 General: Alert, Oriented x3, Cooperative HEENT: Atraumatic, PERRLA, EOMI, Normocephalic Neck: Supple, No JVD, Negative Carotid Bruits Lungs: Clear to auscultation, Normal air movement Cardiovascular: Regular rate, No murmurs Abdomen: Bowel Sounds Present, Soft, Non Tender Extremities: No edema, Capillary Refill Less than 3 Seconds Skin: No rashes, No breakdown Musculoskeletal: No Tenderness to Palpation of Joints or Extremities Neurological: Cranial nerves II-XII grossly intact Psych/Mental Status: Normal Affect, Appropriate Current Medications Acetaminophen (Tylenol) 1,000 mg PO Q6H [facility] Last Admin: 07/12/20 06:40 Dose: 1,000 mg Documented by: Bisacodyl (Dulcolax) 10 mg RECTAL UD PRN PRN Reason: If no BM Citalopram Hydrobromide (Celexa) 20 mg PO DAILY [facility] Last Admin: 07/12/20 10:13 Dose: 20 mg Documented by: Hydrocortisone (Hytone) 1 applic TOPICAL TID PRN PRN; Protocol PRN Reason: Discomfort Naloxone HCl 4 mg/ Dextrose 504 mls @ 0 mls/hr IV .Q0M PRN; Protocol PRN Reason: Respiratory depression Ibuprofen (Motrin) 600 mg PO Q6H [facility] Last Admin: 07/12/20 10:13 Dose: 600 mg Documented by: Methylergonovine Maleate (Methergine) 0.2 mg IM X1 PRN PRN Reason: Uterine Atony Naloxone HCl (Narcan) 0.02 mg IV Q1M PRN PRN Reason: RR <10 and pt unresponsive Nitrofurantoin [facility]) [facility] Last Admin: 07/12/20 08:08 Dose: 100 mg Documented by: Ondansetron HCl (Zofran) 4 mg IV Q4H PRN PRN PRN Reason: Nausea Oxycodone HCl (Oxyir) 5 - 10 mg PO Q4H PRN PRN PRN Reason: Pain Score 4-10/10 Last Admin: 07/11/20 18:19 Dose: 10 mg Documented by: Prochlorperazine Edisylate (Compazine Iv) 10 mg IV Q6H PRN PRN PRN Reason: NAUSEA Senna/Docusate Sodium (Senokot-S, Anette-Colace) 1 - 2 tablet PO DAILY [facility] Last Admin: 07/12/20 10:13 Dose: 1 tablet Documented by: Simethicone (Mylicon) 80 mg PO [facility] PRN PRN Reason: Indigestion/stomach pain Sodium Chloride () 5 - 15 ml IV UD PRN PRN Reason: SALINE FLUSH Last Admin: 07/11/20 15:45 Dose: 10 ml Documented by: Medical Necessity - Tobacco Use Smoking Status: Former smoker Assessment/Plan All Active Problems 40 weeks gestation of (Acute) Arrest of descent, delivered, current hospitalization (Acute) Delivery of by section (Acute) A/P: Postoperative day #2 status post repeat low transverse section via Pfannenstiel incision at 29 weeks for nonreassuring heart tones and suspected placental abruption complicated by cystotomy repair by urology. Pain well controlled Breast-feeding, continues to pump. Urology to see for follow up with Miguel catheter based on their suggestion and follow up. If urology clears patient, okay to D/C home as baby is in [place] N[facility]
== END 2020-07-12 11:00 | disposition home or self-care (01) | DRG 786 ==
LOC: OBT 08:28 → WP 08:28
PROVIDERS: Admitting Provider Obstetrics & Gynecology; Referring Provider Obstetrics & Gynecology; Visit Provider Obstetrics & Gynecology
DX: O60.14X0 Preterm labor third trimester with preterm delivery third trimester, not applicable or unspecified (principal); O45.93 Premature separation of placenta, unspecified, third trimester; O71.5 Other obstetric injury to pelvic organs; O34.211 Maternal care for low transverse scar from previous cesarean delivery; O42.913 Preterm premature rupture of membranes, unspecified as to length of time between rupture and onset of labor, third trimester; Z3A.29 29 weeks gestation of pregnancy; Z37.0 Single live birth; O77.9 Labor and delivery complicated by fetal stress, unspecified; O32.1XX0 Maternal care for breech presentation, not applicable or unspecified; Z87.891 Personal history of nicotine dependence
CPT/HCPCS: 59025; 59050; 84112; 85027; 86850; 86900; 86901; 87081; 87653; 99218; J7120; A4216; G0378; J0702

== ENCOUNTER → 2020-07-23 09:51 | Outpatient (CLI) | payer OTHER, SELFPAY ==
--- NOTE | 2020-07-23 09:57 | RAD_ITS ---
CLINICAL HISTORY: Female, 25 years old. Laceration of the bladder following a . PROCEDURE: A cystogram was obtained. 150 cc of contrast was placed via the indwelling CARD catheter. FLUOROSCOPY TIME (if supplied): (15 seconds) minutes/seconds 150 mL of contrast installed into the bladder in a retrograde fashion through indwelling catheter. The radiologist installed the contrast into the bladder. Findings: The urinary bladder is unremarkable. There is no evidence of bladder leak. RAD/Cystography min 3 Views IMPRESSION: Unremarkable cystogram. Electronically Signed: Gabe Hilario, at 11:54 EDT , Service support ,
--- NOTE | 2020-07-23 10:41 | NURSING ---
unhooked urine leg bag for procedure/cystogram testing and reapplied a new leg bag after testing.
== END ==
PROVIDERS: PCP Family Medicine; Referring Provider Urology; Visit Provider Urology
DX: S37.23XA Laceration of bladder, initial encounter (principal)
CPT/HCPCS: 51600; 74430; Q9965